=== PATIENT | female | born 1965 | race Caucasian/White ===

== ENCOUNTER 2017-11-06 08:51 | Emergency (ER) | payer BC ==
[2017-11-06 10:57] VITALS: BP 105/60
--- NOTE | 2017-11-06 11:27 | UC ---
Abdominal Pain Female HPI - HPI Summary HPI Summary: 52 y/o female PMHX COPD presents to the urgent care c/o SOB and RUQ abdominal pain that has worsen for the past week. Pt reports symptoms started about 1 month ago. Pain is getting worse to the point she feels SOB with palpitations. Pain is intermittent, sharp w/o any radiation, 8/10, also associated with nausea. Pain is the morning for a few hours, it resolves and then returns at night time. Pt denies fever,chest pain, V/D, back pain, urinary symptoms, blood in the stool, constipation. Pt has had Hx of cholecystectomy and appendectomy - History of Current Complaint Chief Complaint: UCAbdominalPain Stated Complaint: PAIN ON SIDE SOB Time Seen by Provider: 11/06/17 11:01 Hx Obtained From: Patient Hx Last Menstrual Period: Last week ?: No Onset/Duration: Gradual Onset, Lasting Weeks - 1 month, Worse Since - last week Timing: Intermittent Episodes Lasting: - 20min Severity Initially: Mild Severity Currently: Severe Pain Intensity: 8 Pain Scale Used: 0-10 Numeric Location: Discrete At: RUQ Radiates: No Character: Sharp Aggravating Factor(s): Deep Breaths Alleviating Factor(s): Spontaneous Resolution Associated Signs and Symptoms: Positive: Negative, Nausea. Negative: Diaphoresis, Fever, Cough, Chest Pain, Back Pain, Constipation, Vaginal Discharge, Vomiting, Diarrhea - Risk Factors Ectopic Risk Factor: Negative Ovarian Torsion Risk Factor: Negative Allergies/Adverse Reactions: Allergies Allergy/AdvReac Type Severity Reaction Status Date / Time Gadolinium Allergy Intermediate Itching Verified 11/06/17 12:08 PMH/Surg Hx/FS Hx/Imm Hx Previously Healthy: Yes Cardiovascular History: Hypertension Respiratory History: COPD Other Neurological History: DDD - Surgical History Surgical History: Yes Surgery Procedure, Year, and Place: 1991 [place]- cholecystectomy, 2000 [place]- appendectomy, 2000 [place]- (right) ovary cyst removal, 2000 [place]- blockage from adhesions in bowel, 2007 left foot surgery - Family History Known Family History: Positive: Hypertension Family History: Dyslipidemia - Social History Occupation: Employed Full-time Lives: With Family Alcohol Use: Rare Substance Use Type: None Smoking Status (MU): Heavy Every Day Tobacco Smoker Type: Cigarettes Amount Used/How Often: 1 PPD Length of Time of Smoking/Using Tobacco: 12 years Have You Smoked in the Last Year: Yes Household Exposure Type: Cigarettes - Immunization History Most Recent Influenza Vaccination: 3444-1186 Season Review of Systems Constitutional: Negative Skin: Negative Eyes: Negative ENT: Negative Respiratory: Shortness Of Breath Cardiovascular: Negative Gastrointestinal: Abdominal Pain Genitourinary: Negative Motor: Negative Neurovascular: Negative Musculoskeletal: Negative Neurological: Negative Psychological: Negative Is Patient Immunocompromised?: No All Other Systems Reviewed And Are Negative: Yes Physical Exam Triage Information Reviewed: Yes Vital Signs: Initial Vital Signs Temp 98.9 F 11/06/17 08:59 Pulse 120 11/06/17 08:59 Resp 22 11/06/17 08:59 BP 160/77 11/06/17 08:59 Pulse Ox 100 11/06/17 08:59 - Additional Comments Vital Signs Reviewed: Yes General:Patient is a well developed and nourished who is sitting comfortable in the examining table. Patient is not in any acute respiratory distress. Eyes: Positive: Conjunctiva Clear - PERRLA, EOMI, fundi grossly normal ENT: Positive: Normal ENT inspection, Hearing grossly normal, Pharynx normal, TMs normal Neck: Positive: Supple, Nontender, No Lymphadenopathy Respiratory: Positive: Chest non-tender, Lungs clear, Normal breath sounds, No respiratory distress Cardiovascular: Positive: RRR,S1 and S2 present, No Murmur, Pulses Normal, Brisk Capillary Refill Abdomen Description: Positive: Abd: Flat with no distention. No surface trauma , , normal bowel sound present in all four quadrants. tenderness to palpation on RUQ, no guarding, rigidity to palpation. No masses palpated, no pulsation in epigastric area. No organomegaly. Positive Friant signs. No Periumbilical tenderness. No rebound in the lower quadrants. Good femoral pulses bilaterally. No hernia noted. No CVAT bilaterally Musculoskeletal: Positive: Strength Intact, ROM Intact, No Edema,FROM in all major joints, no edema, no cyanosis or clubbing. Neuro: Alert and oriented x 3. No acute neurological deficits. Speech is normal. Psycological: WNL Skin: Dry and warm Abd Pain Female Course/Dx - Course Course Of Treatment: 52 y/o female PMHX COPD presents to the urgent care c/o SOB and RUQ abdominal pain that has worsen for the past week. Pt reports symptoms started about 1 month ago. Pain is getting worse to the point she feels SOB with palpitations. Pain is intermittent, sharp w/o any radiation, 8/10 , also associated with nausea. Pain is the morning for a few hours, it resolves and then returns at night time. Pt denies fever,chest pain, V/D, back pain, urinary symptoms, blood in the stool, constipation .Pt has had Hx of cholecystectomy and appendectomy. Hx obtained, Pt has RUQ tenderness on palpation and Garcia sign positive, SOB, and Tachycardic on examination. EKG: Sinus Tachycardia. I consider Pt should go to the ER immediately for the further treatment to r/o PE, ACS, any abnormal abdominal etilogy. I consulted Dr Moses on Pt's symptoms. Dr Moses agreed with me. Pt strongly advised she needs to go to the ER immediately by ambulance to r/o PE or NE or other abdominal etiology. Pt declines ambulance transfer and states she will go by private car. Pt was explained of all the risks of signing AMA. Pt understood and agreed and signed AMA. Left the clinic A&OX3 and hemodynamycally stable. - Differential Dx/Diagnosis Differential Diagnosis: ACS, Appendicitis, Gall Bladder Disease, NE, Pancreatitis, Pelvic Inflammatory Disease, Other - PE Provider Diagnoses: 1- RUQ abdominal pain. 2- SOB. 3- Tachycardia - Physician Notification/Consults Discussed Care of Patient With: Jamila Moses - DR Hillman agreed with Pt's plan of care Discharge - Discharge Plan Condition: Stable Disposition: AGAINST MEDICAL ADVICE Patient Education Materials: Acute Abdominal Pain (ED) Referrals: Shilpi BUCHANAN,Cuauhtemoc Kennedy [Primary Care Provider] - Additional Instructions: You should go to the [facility] immediately for further evaluation and treatment on your Right upper quadrant abdominal pain, Shortness of breath and tachycardia. I have offered the importance of going by Ambulance, and you have declined. Please if you feel pain becomes severe, stop on the side of road and call 911 immediately. The risk of not going can be , Pulmonary embolism, NE, sepsis , ctc
== END 2017-11-06 11:30 | disposition left against medical advice (07) ==
LOC: UCEAST 08:51
DX: R10.11 Right upper quadrant pain (principal); R06.02 Shortness of breath; R00.0 Tachycardia, unspecified; Z72.0 Tobacco use
CPT/HCPCS: 93005; 99212; G0463

== ENCOUNTER 2017-11-06 12:02 | Emergency (ER) | payer BC ==
[2017-11-06 13:04] LABS: Hematocrit 49 % (35-47); Hemoglobin 16.7 g/dl (12.0-16.0); Mean Corpuscular HGB Conc 34 g/dl (31-36); Mean Corpuscular Hemoglobin 31 pg (27-31); Mean Corpuscular Volume 92 fL (80-97); Mean Platelet Volume 8 um3 (7.4-10.4); Red Blood Count 5.31 10^6/ul (4.0-5.4); Red Cell Distribution Width 14 % (10.5-15); White Blood Count 13.3 10^3/ul (3.5-10.8)
[2017-11-06 13:06] LABS: Add Diff/Slide Review? Slide Review Added; Comments Flag Yes
--- NOTE | 2017-11-06 13:23 | RAD ---
Indication: Abdominal pain. 2 views of the chest including dual energy PA views demonstrate no mediastinal shift. Heart is of normal size and configuration. Lung quintanilla are clear. When compared to previous exam of June 29, 2013 no significant change is noted. IMPRESSION: No active cardiopulmonary disease is noted.
[2017-11-06 13:28] LABS: Troponin I 0.01 ng/mL (<0.04)
[2017-11-06 13:35] LABS: Albumin 4.5 g/dL (3.2-5.2); BUN/Creatinine Ratio 9.4 (8-20); C Reactive Protein 4.84 mg/L (< 5.00); EGFR African American 125.8 (>60); EGFR Non-African American 97.8 (>60); Globulin 3.7 g/dL (2-4); Magnesium 1.9 mg/dL (1.9-2.7); Potassium 3.7 mmol/L (3.5-5.0); Total Bilirubin 0.6 mg/dL (0.2-1.0); Total Protein 8.2 g/dL (6.4-8.9)
[2017-11-06] MEDS ORDERED: Iohexol 300* (CONTRAST) 10 ML SDV IV ONE (13:49)
[2017-11-06 13:56] LABS: Urine Bacteria 1+ (Absent); Urine Bilirubin Negative (Negative); Urine Glucose Negative (Negative); Urine Nitrite Negative (Negative)
--- NOTE | 2017-11-06 14:43 | RAD ---
Indication: Right lower quadrant pain. Contrast: Administered 100.0 ml of OMNIPAQUE 300 mg/ml CT of the abdomen and pelvis was performed after oral and IV contrast administration. Coronal and sagittal reconstructed images were obtained. Lung bases demonstrate no pleural fluid, nodules or masses. Heart is of normal size without evidence of pericardial effusion. Liver is normal in size. No focal lesions or intrahepatic ductal dilatation is noted. Patient is status post cholecystectomy. Common duct is not dilated. Pancreas indicates no mass or pancreatic duct dilatation. The spleen is normal in size. No adrenal lesions are noted. The kidneys demonstrate symmetric nephrograms. Cysts are noted in both kidneys measuring up to 8.2 x 7.8 cm in the right kidney. The left kidney demonstrates a cyst measuring 6.4 x 6.2 cm. Aorta demonstrates atherosclerosis without evidence of aneurysmal dilatation. Common iliac and external iliac arteries are unremarkable The appendix has been previously resected. No abnormal wall thickening is noted in the right lower quadrant of the distal ileum or cecum. No evidence of bowel obstruction is noted. The uterus and ovaries are grossly unremarkable. No adnexal masses are noted. IMPRESSION: No abnormal masses right lower quadrant. No abnormal fluid collections are noted. Patient has had prior appendectomy.
[2017-11-06 17:22] VITALS: BP 143/87
--- NOTE | 2017-11-06 22:38 | ED ---
Mp Thomas Tiffany, scribed for Yarelis Field MD on 11/06/17 at 1330 . Abdominal Pain/Female - HPI Summary HPI Summary: This patient is a 52 year old F referred from [facility] to [facility] with a chief complaint of RUQ abdominal pain since this morning. The patient has been having intermittent RUQ abdominal pain for past five weeks. This week, the pain has been sharp and constant in the morning but then intermittent throughout the day. Today, the pain was sharp and stabbing at 06:00 and did not go away. The pain radiates to under the patients right breast. The patient rates the pain 6/ 10 in severity. Symptoms aggravated by nothing. Symptoms alleviated by nothing. Patient reports normal bowel movement, nausea, and shortness of breath. Patient denies vomiting, dysuria, diarrhea, chest pain, fever, and leg pain. The patient is allergic to Gadolinium. She reports itchiness and redness when she takes Gadolinium. She did not want pain medication upon evaluation. - History of Current Complaint Chief Complaint: EDAbdPain Stated Complaint: RIGHT ABD PAIN COMING FROM CC Time Seen by Provider: 11/06/17 12:38 Hx Obtained From: Patient Hx Last Menstrual Period: Last week ?: No Onset/Duration: Lasting Weeks - Five weeks, Still Present, Worse Since - This morning at 06:00 Timing: Constant Severity Initially: Moderate Severity Currently: Moderate Pain Intensity: 6 Pain Scale Used: 0-10 Numeric Location: Discrete At: RUQ Radiates: Yes Radiates to: Other - Under right breast Character: Sharp, Other: - Stabbing Aggravating Factor(s): Nothing Alleviating Factor(s): Nothing Associated Signs and Symptoms: Positive: Other: - normal bowel movement, nausea , and shortness of breath; NEGATIVE: vomiting, dysuria, diarrhea, chest pain, fever, and leg pain Allergies/Adverse Reactions: Allergies Allergy/AdvReac Type Severity Reaction Status Date / Time Gadolinium Allergy Intermediate Itching Verified 11/06/17 12:08 PMH/Surg Hx/FS Hx/Imm Hx Previously Healthy: No Endocrine/Hematology History: Denies: Hx Diabetes, Hx Thyroid Disease Cardiovascular History: Reports: Other Cardiovascular Problems/Disorders - rapid heart rate, PCP cautioned Pt RE: use of OTC stimulants Denies: Hx Hypertension Respiratory History: Reports: Hx Chronic Obstructive Pulmonary Disease (COPD), Other Respiratory Problems/Disorders - smoker Denies: Hx Asthma GI History: Reports: Hx Obstructive Bowel - 2000 blockage d/t adhesions Denies: Hx Ulcer History: Denies: Hx Kidney Stones Musculoskeletal History: Reports: Hx Orthopedic Injury - (left) foot FX Sensory History: Reports: Hx Contacts or Glasses Opthamlomology History: Reports: Hx Contacts or Glasses Neurological History: Reports: Other Neuro Impairments/Disorders - complex regional pain syndrome of leg Psychiatric History: Reports: Hx Anxiety, Hx Depression, Hx Inpatient Treatment , Hx Community Mental Health Tx, Hx Suicide Attempt - Cancer History Hx Chemotherapy: No Hx Radiation Therapy: No - Surgical History Surgery Procedure, Year, and Place: 1991 [place]- cholecystectomy, 2000 [place]- appendectomy, 2000 [place]- (right) ovary cyst removal, 2000 [place]- blockage from adhesions in bowel, 2007 left foot surgery Infectious Disease History: No Infectious Disease History: Denies: Hx Clostridium Difficile, Hx Hepatitis, Hx Human Immunodeficiency Virus (HIV), Hx of Known/Suspected MRSA, Hx Shingles, Hx Tuberculosis, Hx Known/ Suspected VRE, Hx Known/Suspected VRSA, History Other Infectious Disease, Traveled Outside the [place] in Last 30 Days - Family History Known Family History: Positive: Other - Father had colon cancer - Social History Alcohol Use: Rare Hx Substance Use: No Substance Use Type: Reports: None Hx Tobacco Use: Yes Smoking Status (MU): Heavy Every Day Tobacco Smoker Type: Cigarettes Amount Used/How Often: 1 PPD Length of Time of Smoking/Using Tobacco: 12 years Have You Smoked in the Last Year: Yes Review of Systems Negative: Fever Negative: Chest Pain Positive: Shortness Of Breath Positive: Abdominal Pain - RUQ that radiates to under right breast, Nausea, Other - Normal bowel movements. Negative: Vomiting, Diarrhea Negative: dysuria Positive: Other - NEGATIVE: leg pain Skin: Negative Neurological: Negative All Other Systems Reviewed And Are Negative: Yes Physical Exam Triage Information Reviewed: Yes Vital Signs On Initial Exam: Initial Vitals Temp Pulse Resp BP Pulse Ox 99.0 F 125 17 149/113 98 11/06/17 12:04 11/06/17 12:04 11/06/17 12:04 11/06/17 12:04 11/06/17 12:04 Vital Signs Reviewed: Yes Appearance: Positive: Well-Appearing, Well-Nourished, Pain Distress Skin: Positive: Warm, Skin Color Reflects Adequate Perfusion Head/Face: Positive: Normal Head/Face Inspection Eyes: Positive: EOMI, Conjunctiva Clear ENT: Positive: Normal ENT inspection Neck: Positive: Supple Respiratory/Lung Sounds: Positive: Clear to Auscultation, Breath Sounds Present - Normal, Other - No respiratory distress Cardiovascular: Positive: Normal - Brisk capillary refill, RRR, Pulses are Symmetrical in both Upper and Lower Extremities. Negative: Murmur Abdomen Description: Positive: Nontender, No Organomegaly, Soft, Other: - min tenderness RUQ. Negative: Bruit, CVA Tenderness (R), CVA Tenderness (L), Distended, Guarding, Hernia @, Hepatomegaly, McBurney's Point Tenderness, Peritoneal Signs, Pulsatile Mass, Splenomegaly Bowel Sounds: Positive: Present Musculoskeletal: Positive: Normal, Strength/ROM Intact Neurological: Positive: Sensory/Motor Intact, Alert, Oriented to Person Place, Time, Facial Symmetry, Speech Normal Psychiatric: Positive: Normal Diagnostics - Vital Signs Vital Signs Temp Pulse Resp BP Pulse Ox 11/06/17 12:04 99.0 F 125 17 149/113 98 - Laboratory Lab Results: Lab Results 11/06/17 11/06/17 Range/Units 12:50 12:50 WBC 13.3 H (3.5-10.8) 10^3/ul RBC 5.31 (4.0-5.4) 10^6/ul Hgb 16.7 H (12.0-16.0) g/dl Hct 49 H (35-47) % MCV 92 (80-97) fL MCH 31 (27-31) pg MCHC 34 (31-36) g/dl RDW 14 (10.5-15) % Plt Count 271 (150-450) 10^3/ul MPV 8 (7.4-10.4) um3 Neut % (Auto) 86.2 H (38-83) % Lymph % (Auto) 8.4 L (25-47) % Chase % (Auto) 4.1 (1-9) % Eos % (Auto) 0.3 (0-6) % Baso % (Auto) 1.0 (0-2) % Absolute Neuts (auto) 11.4 H (1.5-7.7) 10^3/ul Absolute Lymphs (auto) 1.1 (1.0-4.8) 10^3/ul Absolute Monos (auto) 0.6 (0-0.8) 10^3/ul Absolute Eos (auto) 0 (0-0.6) 10^3/ul Absolute Basos (auto) 0.1 (0-0.2) 10^3/ul Absolute Nucleated RBC 0.01 10^3/ul Nucleated RBC % 0.1 INR (Anticoag Therapy) 0.93 (0.77-1.02) Result Diagrams: 11/06/17 12:50 11/06/17 12:50 Lab Statement: Any lab studies that have been ordered have been reviewed, and results considered in the medical decision making process. - Radiology CXR Radiology Interpretation Completed By: Radiologist - No active cardiopulmonary disease is noted. ED physician has reviewed this radiology report. - CT Abd/Pel CT Interpretation Completed By: Radiologist - No abnormal masses right lower quadrant. No abnormal fluid collections are noted. Patient has had prior appendectomy. ED physician has reviewed this radiology report. - EKG 12:54 Cardiac Rate: NL EKG Rhythm: Sinus Rhythm - [address] Segment: Non-Specific EKG Interpretation: Normal AV/IV conduction times. Normal QTC. Normal axis. No acute changes Re-Evaluation - Re-Evaluation First Eval Re-Evaluation Time: 16:27 Change: Improved Comment: The patient's pain is rated 2/10. She understands the discharge instructions to follow up with her primary care provider in [place], [place]. Abdominal Pain Fem Course/Dx - Course Course Of Treatment: Allergies noted. High blood pressure noted. Pt medications reviewed this visit. An EKG reveals normal sinus rhythm at 99 BPM, normal AV/ IV conduction times, normal QTC, normal axis, no acute changes, non-specific ST waves. CXR reveals, per radiologist, No active cardiopulmonary disease is noted. CT Abd/Pel reveals, per radiologist, No abnormal masses right lower quadrant. No abnormal fluid collections are noted. Patient has had prior appendectomy. Patient will be discharged with prescription for Naproxen 250 mg TAB and follow up from Dr. Dobbins. The patient is agreeable with this plan. - Diagnoses Differential Diagnosis: Positive: ACS, Bowel Obstruction, Constipation, Diverticulitis, Gall Bladder Disease, Hepatitis, Pancreatitis, Pelvic Inflammatory Disease, Renal Colic Provider Diagnoses: Abdominal pain Discharge - Discharge Plan Condition: Stable Disposition: HOME Prescriptions: Naproxen TAB* [Naprosyn 250 mg TAB*] 500 mg PO BID #20 tab Referrals: Shilpi BUCHANAN,Cuauhtemoc Kennedy [Primary Care Provider] - 1 Week (sooner if needed ) Additional Instructions: Your CT scan did not show any obstruction or abscess or masses. You should follow up with your doctor in [facility] to arrange further follow up. Return to the ED if any new or worsening symptoms, or if you start vomiting, have a fever or double over in pain. We have given you a prescription for Aleve. Do not take ibuprofen with aleve. The documentation as recorded by the Mp osuna Tiffany accurately reflects the service I personally performed and the decisions made by , Yarelis Field MD.
== END 2017-11-06 17:21 | disposition home or self-care (01) ==
LOC: ED 12:02
DX: R06.02 Shortness of breath (principal); R10.11 Right upper quadrant pain; R11.0 Nausea
CPT/HCPCS: 36415; 71020; 74177; 80053; 81003; 81015; 82150; 83605; 83690; 83735; 84484; 85025; 85379; 85610; 86140; 87086; 93005; 99283; Q9967